=== PATIENT | male | born 1970 | race Caucasian/White ===

== ENCOUNTER 2018-06-05 10:58 | Observation (INO) | payer OTHER ==
[~2018-06-05] VITALS: Ht 584.7 cm; Wt 86.9 kg
[2018-06-05] MEDS ORDERED: normal saline 1000ML IV soln IVB ONE (11:10)
[2018-06-05 11:28] LABS: BASOPHILS % (AUTO) 0.5 % (0-1); EOSINOPHILS # (AUTO) 0.5 X10'3 (0-0.9); EOSINOPHILS % (AUTO) 7.2 % (0-6); HEMOGLOBIN 15.4 g/dl (14.0-17.9); LYMPHOCYTES # (AUTO) 1.8 X10'3 (1.1-4.8); LYMPHOCYTES % (AUTO) 23.3 % (21-51); MEAN CORPUSCULAR HEMOGLOBIN 32.5 PG (27.0-31.0); MEAN CORPUSCULAR VOLUME 92.8 FL (78-98); MEAN PLATELET VOLUME 7.7 FL (7.4-10.4); MONOCYTES # (AUTO) 0.5 X10'3 (0-0.9); MONOCYTES % (AUTO) 6.2 % (2-12); NEUTROPHILS # (AUTO) 4.7 X10'3 (1.8-7.7); NEUTROPHILS % (AUTO) 62.8 % (42-75); PLATELET COUNT 266 X10'3 (140-440); RED BLOOD COUNT 4.74 X10'6 (4.70-6.10); RED CELL DISTRIBUTION WIDTH 12.5 % (11.5-14.5); WHITE BLOOD COUNT 7.5 X10'3 (4.5-11.0)
[2018-06-05 11:34] LABS: PROTHROMBIN TIME 10.1 SECONDS (9.0-12.0)
[2018-06-05 11:39] LABS: ALANINE AMINOTRANSFERASE 25 U/L (12-78); ALBUMIN 4.1 G/DL (3.4-5.0); ALBUMIN/GLOBULIN RATIO 1.2 (1.1-1.5); ALKALINE PHOSPHATASE 61 IU/L (46-116); ANION GAP 8 (8-16); ASPARTATE AMINO TRANSFERASE 18 U/L (10-37); BILIRUBIN,TOTAL 0.2 MG/DL (0.1-1.0); BLOOD UREA NITROGEN 17 MG/DL (7-18); BUN/CREATININE RATIO 16.5 (5.4-32.0); CALCIUM 9.4 MG/DL (8.5-10.1); CHLORIDE 103 MMOL/L (99-107); CREATININE 1.03 MG/DL (0.60-1.10); GLUCOSE 142 MG/DL (70-104); POTASSIUM 3.7 MMOL/L (3.5-5.1); SODIUM 140 MMOL/L (135-145); TOTAL CARBON DIOXIDE 28.8 MMOL/L (24-32); TOTAL PROTEIN 7.4 G/DL (6.4-8.2); eGFR 77 ML/MIN
[2018-06-05 11:43] LABS: TROPONIN I < 0.04 NG/ML (0.0-0.05)
[2018-06-05] MEDS ORDERED: LORazepam 2 mg/ml vial IV ONE (12:10)
[2018-06-05] MEDS ORDERED: cloNIDine 0.1 mg tablet PO ONE (12:10)
[2018-06-05 12:14] LABS: CLARITY,URINE Clear (Clear); COLOR,URINE Yellow (Yellow); GLUCOSE, URINE Negative (Neg); KETONES,URINE Negative (Neg); LEUKOCYTE ESTERASE ,URINE Negative (Neg); NITRITES, URINE Negative (Neg); OCCULT BLOOD,URINE Negative (Neg); PROTEIN,URINE Negative (Neg); UROBILINOGEN,URINE 0.2 E.U/dL (0.2-1.0)
[2018-06-05 12:16] LABS: UA COLLECTION TYPE CLN CATCH MIDSTREAM
[2018-06-05] MEDS ORDERED: HYDR25TA4 PO (12:51)
[2018-06-05] MEDS ORDERED: CARV40CP7 PO (12:51)
[2018-06-05] MEDS ORDERED: ZOLP10TA5 PO (12:51)
[2018-06-05] MEDS ORDERED: MELO-102 PO (12:51)
[2018-06-05 13:18] LABS: URINE AMPHETAMINE SCREEN NEGATIVE (Neg); URINE BARBITUATE SCREEN NEGATIVE (Neg); URINE BENZODIAZEPINES SCREEN NEGATIVE (Neg); URINE CANNABINOID SCREEN NEGATIVE (Neg); URINE COCAINE SCREEN NEGATIVE (Neg); URINE METHADONE SCREEN NEGATIVE (Neg); URINE OPIATE SCREEN POSITIVE (Neg); URINE PHENCYCLIDINE SCREEN NEGATIVE (Neg)
[2018-06-05] MEDS ORDERED: magnesium hydroxide 30ml (MOM) UD suspension PO PRN (13:25)
[2018-06-05] MEDS ORDERED: mag hydrox/Alum hydrox/simeth 30ml oral suspension PO PRN (13:25)
[2018-06-05] MEDS ORDERED: acetaminophen 325mg tablet PO PRN (13:25)
[2018-06-05] MEDS ORDERED: bisacodyl 10mg suppository rectal RC PRN (13:25)
[2018-06-05 15:32] VITALS: BP 136/101
[2018-06-05] MEDS ORDERED: zolpidem 5mg tablet PO PRN (16:15)
[2018-06-05] MEDS: carVEDilol 12.5mg tablet PO SCH ×2 (17:06→18:17)
[2018-06-05] MEDS: HYDROcodone/acetaminophen 5mg/325mg tablet PO PRN ×2 (17:09→21:56)
[2018-06-05 18:00] VITALS: BP 128/89
[2018-06-05] MEDS: docusate sod 100mg capsule PO SCH (19:42)
[2018-06-05] MEDS ORDERED: aspirin 325mg tablet PO ONE (20:25)
[2018-06-05 21:07] LABS: MAGNESIUM 1.8 MG/DL (1.5-2.4)
[2018-06-05 21:08] LABS: ETHANOL < 0.010 GM/DL (0.0-0.010)
[2018-06-05 22:00] VITALS: BP 124/77
[2018-06-06 02:02] VITALS: BP 134/86
[2018-06-06] MEDS: HYDROcodone/acetaminophen 5mg/325mg tablet PO PRN ×2 (04:55→12:10)
[2018-06-06 06:16] LABS: BASOPHILS % (AUTO) 0.8 % (0-1); EOSINOPHILS # (AUTO) 0.4 X10'3 (0-0.9); EOSINOPHILS % (AUTO) 8.1 % (0-6); HEMATOCRIT 40.8 % (42.0-52.0); HEMOGLOBIN 14.4 g/dl (14.0-17.9); LYMPHOCYTES # (AUTO) 1.2 X10'3 (1.1-4.8); LYMPHOCYTES % (AUTO) 23.5 % (21-51); MEAN CORPUSCULAR HEMOGLOBIN 32.4 PG (27.0-31.0); MEAN CORPUSCULAR HGB CONC 35.4 % (33.0-36.5); MEAN CORPUSCULAR VOLUME 91.7 FL (78-98); MEAN PLATELET VOLUME 7.6 FL (7.4-10.4); MONOCYTES # (AUTO) 0.4 X10'3 (0-0.9); MONOCYTES % (AUTO) 8.6 % (2-12); NEUTROPHILS # (AUTO) 3.1 X10'3 (1.8-7.7); PLATELET COUNT 223 X10'3 (140-440); RED BLOOD COUNT 4.45 X10'6 (4.70-6.10); RED CELL DISTRIBUTION WIDTH 12.6 % (11.5-14.5); WHITE BLOOD COUNT 5.2 X10'3 (4.5-11.0)
[2018-06-06 06:30] LABS: ALANINE AMINOTRANSFERASE 29 U/L (12-78); ALBUMIN 3.6 G/DL (3.4-5.0); ALBUMIN/GLOBULIN RATIO 1.2 (1.1-1.5); ALKALINE PHOSPHATASE 42 IU/L (46-116); ANION GAP 9 (8-16); ASPARTATE AMINO TRANSFERASE 18 U/L (10-37); BILIRUBIN,TOTAL 0.3 MG/DL (0.1-1.0); BLOOD UREA NITROGEN 12 MG/DL (7-18); BUN/CREATININE RATIO 15.2 (5.4-32.0); CALCIUM 8.7 MG/DL (8.5-10.1); CHLORIDE 106 MMOL/L (99-107); CHOL/HDL RATIO 6.6 (0.00-4.99); CHOLESTEROL 212 MG/DL (0-200); CREATININE 0.79 MG/DL (0.60-1.10); GLUCOSE 101 MG/DL (70-104); HDL CHOLESTEROL 32 MG/DL (35-60); LDL CHOLESTEROL 144 MG/DL (50-100); POTASSIUM 3.6 MMOL/L (3.5-5.1); SODIUM 139 MMOL/L (135-145); TOTAL CARBON DIOXIDE 24.4 MMOL/L (24-32); TOTAL PROTEIN 6.5 G/DL (6.4-8.2); TRIGLYCERIDES 233 MG/DL (20-135); eGFR > 90 ML/MIN
[2018-06-06] MEDS ORDERED: iohexol 350MG/ML 100ml bottle IV ONE (07:00)
[2018-06-06 07:28] VITALS: BP 129/88
[2018-06-06] MEDS: carVEDilol 12.5mg tablet PO SCH (08:00)
[2018-06-06] MEDS ORDERED: enoxaparin 40mg/0.4ml syringe SQ SCH (08:00)
[2018-06-06] MEDS: docusate sod 100mg capsule PO SCH (08:12)
[2018-06-06] MEDS ORDERED: aspirin 325mg tablet PO SCH (08:30)
[2018-06-06 08:34] VITALS: BP_SYST 132; BP_SYST 138; BP_SYST 147; BP_DIAS 101; BP_DIAS 103; BP_DIAS 96
[2018-06-06 11:55] VITALS: BP 142/90
== END 2018-06-06 12:40 | disposition home or self-care (01) ==
LOC: ER 10:58 → ED HOLD 13:22 → ORTHO 4S 15:31
PROVIDERS: ADMIT Emergency Medicine; ATTEND Emergency Medicine
DX: R41.0 Disorientation, unspecified (principal); N17.9 Acute kidney failure, unspecified; F41.9 Anxiety disorder, unspecified; I10 Essential (primary) hypertension; I16.0 Hypertensive urgency; G45.9 Transient cerebral ischemic attack, unspecified; Z79.899 Other long term (current) drug therapy
CPT/HCPCS: 36415; 70450; 70496; 70498; 70551; 71045; 80053; 80061; 80305; 80320; 81003; 82140; 82948; 83735; 84100; 84443; 84484; 85025; 85610; 87070; 93005; 93306; 93880; 96361; 96372; 96374; 99291; G0378; J1650; J2060; J7030; Q9967

== ENCOUNTER 2021-03-15 22:29 | Emergency (ER) | payer BC, OTHER ==
[~2021-03-15] VITALS: Ht 172.7 cm; Wt 90.9 kg
[~2021-03-15 22:29] MED LIST: CARV40CP7 PO; HYDR25TA4 PO; MELO-102 PO; ZOLP10TA5 PO
[2021-03-15 23:22] VITALS: BP 178/132
--- NOTE | 2021-03-16 00:05 | NUR ---
Kay[facility] FIELD TALKING WITH PT AND SPOUSE ABOUT COVID + RESULTS AND DC INSTRUCTIONS.
== END 2021-03-16 00:21 | disposition home or self-care (01) ==
LOC: ER 22:29
DX: U07.1 COVID-19 (principal); I11.9 Hypertensive heart disease without heart failure; Z79.899 Other long term (current) drug therapy
CPT/HCPCS: 87635; 99283; C9803

== ENCOUNTER 2023-03-18 09:34 | Emergency (ER) | payer BC ==
[~2023-03-18] VITALS: Ht 172.7 cm; Wt 89.1 kg
[~2023-03-18 09:34] MED LIST changes: +ASPI81TA53 PO; +FENO145T25 PO; -HYDR25TA4 PO; +PANT-47 PO; +SACU1TAB PO; +TICA90TA PO; -ZOLP10TA5 PO
[2023-03-18 09:45] LABS: BASOPHILS % (AUTO) 0.7 % (0-1); EOSINOPHILS # (AUTO) 0.2 X10'3 (0-0.9); HEMATOCRIT 43.2 % (42.0-52.0); LYMPHOCYTES # (AUTO) 0.8 X10'3 (1.1-4.8); MEAN CORPUSCULAR HEMOGLOBIN 32.7 PG (27.0-31.0); MEAN CORPUSCULAR HGB CONC 34.8 g/dL (33.0-36.5); MEAN CORPUSCULAR VOLUME 93.9 FL (78-98); MEAN PLATELET VOLUME 7.2 FL (7.4-10.4); MONOCYTES # (AUTO) 0.4 X10'3 (0-0.9); MONOCYTES % (AUTO) 6.5 % (2-12); NEUTROPHILS # (AUTO) 4.5 X10'3 (1.8-7.7); NEUTROPHILS % (AUTO) 74.8 % (42-75); PLATELET COUNT 222 X10'3 (140-440); RED CELL DISTRIBUTION WIDTH 15.5 % (11.5-14.5)
[2023-03-18 10:00] LABS: ALANINE AMINOTRANSFERASE 35 U/L (12-78); ALBUMIN 4.6 G/DL (3.4-5.0); ALBUMIN/GLOBULIN RATIO 1.6 (1.1-1.5); ALKALINE PHOSPHATASE 49 IU/L (46-116); ANION GAP 6 (8-16); ASPARTATE AMINO TRANSFERASE 27 U/L (10-37); BILIRUBIN,TOTAL 0.8 MG/DL (0.1-1.0); BLOOD UREA NITROGEN 21 MG/DL (7-18); BUN/CREATININE RATIO 19.1 (10.0-20.0); CALCIUM 9.3 MG/DL (8.5-10.1); CHLORIDE 108 MMOL/L (99-107); GLUCOSE 125 MG/DL (70-104); POTASSIUM 4.4 MMOL/L (3.5-5.1); SODIUM 142 MMOL/L (135-145); TOTAL CARBON DIOXIDE 27.8 MMOL/L (24-32); TOTAL PROTEIN 7.4 G/DL (6.4-8.2); eGFR 70 ML/MIN
[2023-03-18 10:07] LABS: MAGNESIUM 1.8 MG/DL (1.5-2.4)
[2023-03-18] MEDS ORDERED: sacubitril/valsartan 24mg-26mg tablet PO ONE (10:45)
[2023-03-18] MEDS ORDERED: LIDOcaine 1% W/epiNEPHrine 1:100,000 20ml vial SQ ONE (10:55)
--- NOTE | 2023-03-18 11:02 | NUR ---
[facility] REGARDING ENRESTO,TECH TO BRING MED TO ED.
[2023-03-18] MEDS ORDERED: cloNIDine 0.1 mg tablet PO ONE (14:25)
--- NOTE | 2023-03-18 14:26 | NUR ---
Family concerned about unsafe discharge due to patients blood pressure. Dr. Vora updated. Clonidine ordered.
[2023-03-18 15:04] VITALS: BP 153/114
--- NOTE | 2023-03-18 15:04 | NUR ---
ok to discharge per dr. longoria
== END 2023-03-18 15:04 | disposition home or self-care (01) ==
LOC: ER 09:35
DX: R07.89 Other chest pain (principal); M79.602 Pain in left arm; I10 Essential (primary) hypertension; E78.00 Pure hypercholesterolemia, unspecified; I25.2 Old myocardial infarction; Z86.73 Personal history of transient ischemic attack (TIA), and cerebral infarction without residual deficits; Z87.891 Personal history of nicotine dependence; Z72.89 Other problems related to lifestyle; Z79.82 Long term (current) use of aspirin; Z79.899 Other long term (current) drug therapy
CPT/HCPCS: 36415; 71045; 80053; 83735; 83880; 84484; 85025; 93005; 99285

== ENCOUNTER 2023-12-11 08:25 | Outpatient (CLI) | payer BC ==
[2023-12-11] MEDS: PERFLUTREN PROTEIN-A MICROSPHR (Optison) 0.22 MG/ML 3ML VIAL IV ONE (09:05)
== END 2023-12-11 23:59 | disposition home or self-care (01) ==
LOC: CARD DIAG 08:25
PROVIDERS: ATTEND Internal Medicine Interventional Cardiology
DX: I34.0 Nonrheumatic mitral (valve) insufficiency (principal); I34.81 Nonrheumatic mitral (valve) annulus calcification; I50.22 Chronic systolic (congestive) heart failure
CPT/HCPCS: 93306; 93308; Q9956